=== PATIENT | male | born 1975 ===

== ENCOUNTER 2017-02-20 02:57 | Inpatient (IN) | payer MEDICARE, OTHER ==
[2017-02-20 03:14] VITALS: O2SAT 97
[2017-02-20 03:15] VITALS: BMI 34.0
--- NOTE | 2017-02-20 03:25 | ED PDOC ---
HPI: Psych/Substance Abuse Time Seen by Provider: 02/20/17 03:04 Chief Complaint (Nursing): Psychiatric Evaluation Chief Complaint (Provider): SI x 1 hour History Per: Patient History/Exam Limitations: no limitations Onset/Duration Of Symptoms: Hrs Current Symptoms Are (Timing): Still Present Modifying Factor(s): None Additional Complaint(s): Pt states he has history of bipolar disorder. PT states he takes Haldol but it has not been working. Pt states he thinks he had a suicide attempt in the past but does not remember. Past Medical History Reviewed: Historical Data, Nursing Documentation, Vital Signs Vital Signs: Last Vital Signs Temp 98.3 F 02/20/17 03:13 Pulse 90 02/20/17 03:13 Resp 18 02/20/17 03:13 BP 132/84 02/20/17 03:13 Pulse Ox 97 02/20/17 03:13 - Medical History PMH: Anxiety, Bipolar Disorder, Depression, Diabetes, Paranoia, Schizophrenia Denies: Alzheimer's Disease, Anemia, Arthritis, Asthma, Bronchitis, Cardia Arrhythmia, CHF, COPD, Crohn's Disease, Dementia, Diverticulitis, Emphysema, Fibromyalgia, Fractures, Gastrointestinal Ulcer, Gall Bladder Disease, Hepatitis , HIV, HTN, Hypercholesterolemia, Hyperthyroidism, Hypothyroidism, Kidney Stones , Migraine, Mitral Valve Prolapse, Osteoporosis, Pancreatitis, Parkinson's Disease, Peripheral Edema, Pneumonia, Post Traumatic Stress Disorder, Chronic Kidney Disease, Seizures, Sickle Cell Disease, Sexually Transmitted Disease, Sleep Apnea, TIA - Surgical History Surgical History: Appendectomy Denies: Cholecystectomy, Coronary Stent, Pacemaker - Family History Family History: States: Unknown Family Hx - Living Arrangements Living Arrangements: With Family - Social History Current smoker - smoking cessation education provided: No - Immunization History Hx Tetanus Toxoid Vaccination: No (feels immunizations make him sick) Hx Influenza Vaccination: No Hx Pneumococcal Vaccination: No - Home Medications Home Medications: Ambulatory Orders Medication Instructions Recorded Benztropine [Benztropine Mesylate] 1 mg PO BID PRN #30 tab 05/04/16 Haloperidol [Haldol] 5 mg PO BID #30 tab 05/04/16 MetFORMIN [glucoPHAGE] 1,000 mg PO BID #30 tab 05/04/16 Sertraline [Zoloft] 50 mg PO DAILY #15 tab 05/04/16 - Allergies Allergies/Adverse Reactions: Allergies Allergy/AdvReac Type Severity Reaction Status Date / Time divalproex sodium Allergy RASH Verified 02/10/16 23:00 [From Depakote] seafood Allergy RASH Uncoded 02/10/16 23:00 Review of Systems ROS Statement: Except As Marked, All Systems Reviewed And Found Negative Psych: Positive for: Suicidal ideation Physical Exam - Reviewed Nursing Documentation Reviewed: Yes Vital Signs Reviewed: Yes - Physical Exam Appears: Positive for: Well, Non-toxic, No Acute Distress Head Exam: Positive for: ATRAUMATIC, NORMAL INSPECTION, NORMOCEPHALIC Skin: Positive for: Normal Color, Warm, DRY Eye Exam: Positive for: Normal appearance ENT: Positive for: Normal ENT Inspection Neck: Positive for: Normal, Painless ROM Cardiovascular/Chest: Positive for: Regular Rate, Rhythm Respiratory: Positive for: CNT, Normal Breath Sounds Gastrointestinal/Abdominal: Positive for: Normal Exam, Bowel Sounds, Soft Back: Positive for: Normal Inspection Extremity: Positive for: Normal ROM Neurologic/Psych: Positive for: Alert, Oriented - ECG O2 Sat by Pulse Oximetry: 97 Disposition - Clinical Impression Clinical Impression: Depression - Patient ED Disposition Is Patient to be Admitted: Yes - Disposition Referrals: [facility] [Outside] Disposition Time: 04:09 Condition: GOOD - Pt Status Changed To: Hospital Disposition Of: Inpatient - Admit Certification Admit to Inpatient:: After my assessment, the patient will require hospitalization for at least two midnights. This is because of the severity of symptoms shown, intensity of services needed, and/or the medical risk in this patient being treated as an outpatient. - POA Present On Arrival: None
[2017-02-20 04:19] LABS: HEMATOCRIT 41.2 % (35.0-51.0); MEAN CELL VOLUME 86.5 fl (80.0-94.0); MEAN CORPUSCULAR HEMOGLOBIN 29.2 pg (27.0-31.0); MEAN CORPUSCULAR HGB CONC 33.8 g/dL (33.0-37.0); RED CELL DISTRIBUTION WIDTH 13.9 % (11.5-14.5); WHITE BLOOD COUNT 9.3 K/uL (4.8-10.8)
[2017-02-20 04:20] LABS: RBC URINE < 1 /hpf (0-3); URINE BILIRUBIN NEGATIVE (NEGATIVE); URINE BLOOD NEGATIVE (NEGATIVE); URINE COLOR STRAW (YELLOW); URINE GLUCOSE (UA) >=500 mg/dL (Normal); URINE KETONE NEGATIVE (NEGATIVE); URINE LEUKOCYTE ESTERASE NEG Leu/uL (Negative); URINE PROTEIN NEGATIVE (NEGATIVE); URINE UROBILINOGEN 0.2-1.0 mg/dL (0.2-1.0); WBC URINE < 1 /hpf (0-5)
[2017-02-20 04:24] LABS: CHLORIDE 101 mmol/L (98-107); POTASSIUM 3.8 MMOL/L (3.6-5.0); SODIUM 139 mmol/l (132-148)
[2017-02-20 04:26] LABS: BILIRUBIN,TOTAL 0.3 mg/dl (0.2-1.3); GFR AFRICAN-AMERICAN > 60
[2017-02-20 04:27] LABS: ALB/GLOB RATIO 1.4 (1.0-2.1); ALKALINE PHOSPHATASE 89 U/L (38-126); ALT/SGPT 28 U/L (21-72); AST/SGOT 23 U/L (17-59); BLOOD UREA NITROGEN 10 mg/dl (9-20); CALCIUM 9.2 mg/dL (8.4-10.2); CARBON DIOXIDE 24 mmol/L (22-30); GLUCOSE,RANDOM 216 mg/dL (75-110); TOTAL PROTEIN 7.1 G/DL (6.3-8.2)
[2017-02-20 04:28] LABS: ALCOHOL SERUM < 10 mg/dl (0-10)
[2017-02-20] MEDS ORDERED: Magnesium Hydroxide Susp 30 ml UD PO PRN (05:09)
[2017-02-20] MEDS ORDERED: Alum-Mag Hydrox-Simethicone Susp (30 mL) PO PRN (05:09)
[2017-02-20] MEDS ORDERED: DiphenhydrAMINE 50 mg/ml Inj IM PRN (05:09)
[2017-02-20 07:28] LABS: CHOLESTEROL 172 mg/dL (0-199)
[2017-02-20 10:39] VITALS: RESP 18
--- NOTE | 2017-02-20 10:48 | RAD ---
HISTORY: Admission. Technique: Single view portable erect @ 04:20. COMPARISON: 05/03/2016. FINDINGS: LUNGS: No active pulmonary disease. PLEURA: No significant pleural effusion identified, no pneumothorax apparent. CARDIOVASCULAR: Normal. OSSEOUS STRUCTURES: No significant abnormalities. VISUALIZED UPPER ABDOMEN: Normal. OTHER FINDINGS: None. IMPRESSION: No active disease. No significant interval change compared to the prior examination(s).
[2017-02-20 14:48] LABS: T4 9.02 ug/dl (5.5-11.0)
[2017-02-20 15:02] LABS: THYROID STIMULATING HORMONE 2.57 mIU/ML (0.46-4.68)
--- NOTE | 2017-02-20 16:12 | CARD ---
APPROVED REPORT EKG Measurement Heart [id number] <Conclusion> Normal sinus rhythm Nonspecific ST and T wave abnormality Abnormal ECG
--- NOTE | 2017-02-21 19:22 | CP.PCM.CON ---
History of Present Illness - History of Present Illness History of Present Illness: 41 yo male with history of Bipolar DO and DMII admitted to psyche unit because of worsening depression. Review of Systems - Review of Systems All systems: reviewed and no additional remarkable complaints except (aside from those mentioned above, 12 point system review were negative by me) Past Patient History - Infectious Disease Hx of Infectious Diseases: None - Tetanus Immunizations Tetanus Immunization: Unknown - Past Social History Smoking Status: Light Smoker < 10 Cigarettes Daily Alcohol: < 2 Drinks/Day Home Situation {Lives}: Homeless - CARDIAC Hx Cardiac Disorders: No Hx Cardia Arrhythmia: No Hx Congestive Heart Failure: No Hx Hypercholesterolemia: No Hx Hypertension: No Hx Mitral Valve Prolapse: No Hx Pacemaker: No Hx Peripheral Edema: No - PULMONARY Hx Respiratory Disorders: No Hx Asthma: No Hx Bronchitis: No Hx Chronic Obstructive Pulmonary Disease (COPD): No Hx Emphysema: No Hx Pneumonia: No Hx Sleep Apnea: No - NEUROLOGICAL Hx Neurological Disorder: No Hx Alzheimer's Disease: No Hx Dementia: No Hx Migraine: No Hx Parkinson's Disease: No Hx Seizures: No Hx Transient Ischemic Attacks (TIA): No - HEENT Hx HEENT Problems: No - RENAL Hx Chronic Kidney Disease: No - ENDOCRINE/METABOLIC Hx Endocrine Disorders: Yes (DM) - HEMATOLOGICAL/ONCOLOGICAL Hx Blood Disorders: No Hx Anemia: No Hx Human Immunodeficiency Virus (HIV): No Hx Sickle Cell Disease: No - INTEGUMENTARY Hx Dermatological Problems: No - MUSCULOSKELETAL/RHEUMATOLOGICAL Hx Musculoskeletal Disorders: No Hx Arthritis: No Hx Fractures: No Hx Osteoporosis: No - GASTROINTESTINAL Hx Gastrointestinal Disorders: No Hx Crohn's Disease: No Hx Diverticulitis: No Hx Gall Bladder Disease: No Hx Pancreatitis: No - GENITOURINARY/GYNECOLOGICAL Hx Genitourinary Disorders: No Hx Sexually Transmitted Disorders: No - PSYCHIATRIC Hx Psychophysiologic Disorder: No Hx Anxiety: No Hx Bipolar Disorder: No Hx Depression: Yes Hx Emotional Abuse: No Hx Physical Abuse: No Hx Schizophrenia: No Hx Sexual Abuse: No Hx Substance Use: No - SURGICAL HISTORY Hx Surgeries: Yes Hx Appendectomy: Yes Hx Cholecystectomy: No Hx Coronary Stent: No - ANESTHESIA Hx Anesthesia: Yes Meds Allergies/Adverse Reactions: Allergies Allergy/AdvReac Type Severity Reaction Status Date / Time divalproex sodium Allergy RASH Verified 02/10/16 23:00 [From Depakote] seafood Allergy RASH Uncoded 02/10/16 23:00 - Medications Medications: Current Medications Acetaminophen (Tylenol 325mg Tab) 650 mg PO Q4 PRN PRN Reason: pain 1-7 Al Hydrox/Mg Hydrox/Simethicone (Maalox Plus 30 Ml) 30 ml PO Q4 PRN PRN Reason: Dyspepsia Diphenhydramine HCl (Benadryl) 50 mg PO Q6 PRN PRN Reason: Extrapyramidal Symptoms Diphenhydramine HCl (Benadryl) 50 mg IM Q6 PRN PRN Reason: Extrapyramidal S/S Unable PO Haloperidol (Haldol) 5 mg PO Q4 PRN PRN Reason: Agitation Haloperidol Lactate (Haldol) 5 mg IM Q4 PRN PRN Reason: Agitation, Unable to Take PO Lorazepam (Ativan) 2 mg PO Q4 PRN PRN Reason: Anxiety/Agitation Lorazepam (Ativan) 2 mg IM Q4 PRN PRN Reason: Anxiety/Agitation,Unable PO Magnesium Hydroxide (Milk Of Magnesia) 30 ml PO HS PRN PRN Reason: Constipation Metformin HCl (Glucophage) 1,000 mg PO BIDWM [facility] Last Admin: 02/21/17 16:45 Dose: 1,000 mg Risperidone (Risperdal Tab) 1 mg PO DAILY [facility] Last Admin: 02/21/17 15:57 Dose: 1 mg Sertraline HCl (Zoloft) 50 mg PO DAILY [facility] Last Admin: 02/21/17 15:56 Dose: 50 mg Physical Exam - Constitutional Appears: No Acute Distress - Head Exam Head Exam: ATRAUMATIC - Eye Exam Eye Exam: PERRL - ENT Exam ENT Exam: Mucous Membranes Moist - Neck Exam Neck exam: Negative for: Meningismus - Respiratory Exam Respiratory Exam: absent: Rhonchi, Wheezes, Respiratory Distress - Cardiovascular Exam Cardiovascular Exam: REGULAR RHYTHM, +S1, +S2 - GI/Abdominal Exam GI & Abdominal Exam: Soft. absent: Tenderness - Rectal Exam Rectal Exam: Deferred - Extremities Exam Extremities exam: Negative for: pedal edema - Neurological Exam Neurological exam: Alert, Oriented x3 - Psychiatric Exam Psychiatric exam: Normal Affect - Skin Skin Exam: Dry, Intact Results - Vital Signs Recent Vital Signs: Last Vital Signs Temp 97.5 F L 02/21/17 16:07 Pulse 83 02/21/17 16:07 Resp 18 02/21/17 16:07 BP 133/81 02/21/17 16:07 Pulse Ox 97 02/20/17 04:09 - Labs Result Diagrams: 02/20/17 04:10 02/20/17 04:10 Assessment & Plan (1) Depression Status: Chronic Comment: psyche is managing (2) DM2 (diabetes mellitus, type 2) Status: Chronic Comment: BS uncontrolled. Metformin 1000mg PO BID. accuchek ACHS. HgA1C, bmp in am
--- NOTE | 2017-02-21 21:31 | PCM.PSYCH ---
Initial Psychiatric Evaluation - Initial Psychiatric Evaluation Chief Complaint (in patient's own words): came to hospital to have my medications adjusted Patient's Reaction to Hospitalization: voluntary although pt has submitted a 48 hour notice History of Present Illness and Precipitating Events: 41 year old [place]/Estonian speaking male self presented to ER requesting adjustment of medications-reportedly becoming increasingly depressed after the reportedly of a 27 yo nephew 2nd January 2017. Delmy was previously treated at [facility] for depression. Denies having any hallucinations in past/nor current, denies jelly vacillations in mood, reports that has been treated in past with haldol and it did not help and it made me feel like I was tired-was also treated with rispderdal without notable side effects and helped with depression. Presents to [facility] because it was here where he was first admitted several years ago. Delmy has has had 4 admissions for mental reasons all of which have been [facility] "feels comfortable here, [facility] has rule where they can keep you up to 3 days". 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 Has primary care provider in [place], has diabetes-treated with glucophage 1000mg po bid-reports has been adherent with medication-denies polyuria, polyphagia, polydypsia, denies having any wounds not healing. Current Medications: Active Medications Generic Name Dose Route Start Last Admin Trade Name Freq PRN Reason Stop Dose Admin Acetaminophen 650 mg 02/20/17 05:09 Tylenol 325mg Tab PO Q4 PRN pain 1-7 Al Hydrox/Mg Hydrox/Simethicone 30 ml 02/20/17 05:09 Maalox Plus 30 Ml PO Q4 PRN Dyspepsia Diphenhydramine HCl 50 mg 02/20/17 05:09 Benadryl PO Q6 PRN Extrapyramidal Symptoms Diphenhydramine HCl 50 mg 02/20/17 05:09 Benadryl IM Q6 PRN Extrapyramidal S/S Unable PO Haloperidol 5 mg 02/20/17 05:09 Haldol PO Q4 PRN Agitation Haloperidol Lactate 5 mg 02/20/17 05:09 Haldol IM Q4 PRN Agitation, Unable to Take PO Lorazepam 2 mg 02/20/17 05:09 Ativan PO Q4 PRN Anxiety/Agitation Lorazepam 2 mg 02/20/17 05:09 Ativan IM Q4 PRN Anxiety/Agitation,Unable PO Magnesium Hydroxide 30 ml 02/20/17 05:09 Milk Of Magnesia PO HS PRN Constipation Metformin HCl 1,000 mg 02/20/17 17:00 02/21/17 16:45 Glucophage PO 1,000 mg BIDWM [facility] Administration Risperidone 1 mg 02/21/17 13:30 02/21/17 15:57 Risperdal Tab PO 1 mg DAILY [facility] Administration Sertraline HCl 50 mg 02/21/17 13:30 02/21/17 15:56 Zoloft PO 50 mg DAILY [facility] Administration Past Psychiatric History - Past Psychiatric History Previous Treatment History: Inpatient Prior Psychiatric Treatment: both inpt and opd including [facility] Explanation of prior treatment: s/s depression History of Abuse: denies History of ETOH/Drug Use: smokes approx. 4 cigarrettes per day denies use of other non prescribed rx History of Family Illness: defers Pertinent Medical Hx (Current Medical&Sleep Prob, Allergies): Allergies Allergy/AdvReac Type Severity Reaction Status Date / Time divalproex sodium Allergy RASH Verified 02/10/16 23:00 [From Depakote] seafood Allergy RASH Uncoded 02/10/16 23:00 Benztropine [Benztropine Mesylate] 1 mg PO BID PRN #30 tab 05/04/16 Haloperidol [Haldol] 5 mg PO BID #30 tab 05/04/16 MetFORMIN [glucoPHAGE] 1,000 mg PO BID #30 tab 05/04/16 Sertraline [Zoloft] 50 mg PO DAILY #15 tab 05/04/16 Review of Systems - Psychiatric Psychiatric: Anhedonia, Depression Mental Status Examination - Personal Presentation Personal Presentation: Looks stated age - Affect Affect: Broad - Motor Activity Motor Activity: Calm - Reliability in Providing Information Reliability in Providing Information: Fair - Speech Speech: Organized - Mood Mood: Depressed - Formal Thought Process Formal Thought Process: No Impairment - Obsessions/Compulsions Obsessions: No Compulsions: No - Cognitive Functions Orientation: Person, Place, Situation, Time Sensorium: Alert Attention/Concentration: Attentive Judgement: Imparied, as evidence by: Other Memory: Recent intact, as evidence by: Other - Risk Additional comments: failed transitioning DSM 5 DX - DSM 5 DSM 5 Diagnosis: Major Depressive Disorder mild to moderate without psychosis Hx. Bipolar Disorder Substance use: nicotine active - Recommended/Plan of Treatment Treatment Recommendations and Plan of Treatment: inpt admission per attending md vital signs and clinical observation per protocol and per clinical status Restart risperdal 2mg po hs Restart zoloft 25mg po daily pt defers nicotine patch hospitalist consult pt has submitted 48 hour notice-48 hour notice reviewed including meaning/ significance-positive verbal teach back method noted discharge planning in progress-requests to follow up [facility] Projected ELOS: 2-4 days Prognosis: guarded Discharge Plan and Discharge Criteria: safety - Smoking Cessation Smoking Cessation Initiated: No Reason for not providing: pt deferred
[2017-02-22 09:10] VITALS: BP 134/81; PULSE 72; TEMP 97.2
--- NOTE | 2017-02-22 09:55 | PCM.PYCHDC ---
Mental Status Examination - Mental Status Examination Orientation: Person, Place, Situation, Time Memory: Intact Mood: Neutral Affect: Broad Speech: Appropriate Attention: WNL Concentration: WNL Association: WNL Fund of Knowledge: WNL Formal Thought Process: No Impairment Description of patient's judgement and insight: Denies AH/VH/paranoia Suicidal Ideation: No Current Homicidal Ideation?: No Discharge Summary - Discharge Note Reason for Hospitalization: 41 year old Kiswahili/Palestinian speaking male self presented to ER requesting adjustment of medications-reportedly becoming increasingly depressed after the reportedly of a 27 yo nephew 2nd asthma January 2017. Delmy was previously treated at [facility] for depression. Denies having any hallucinations in past/nor current, denies jelly vacillations in mood, reports that has been treated in past with haldol and it did not help and it made me feel like I was tired-was also treated with rispderdal without notable side effects and helped with depression. Presents to [facility] because it was here where he was first admitted several years ago. Delmy has has had 4 admissions for mental reasons all of which have been [facility] "feels comfortable here, [facility] has rule where they can keep you up to 3 days". 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 Has primary care provider in [place], has diabetes-treated with glucophage 1000mg po bid-reports has been adherent with medication-denies polyuria, polyphagia, polydypsia, denies having any wounds not healing. Consultations:: List each consultation separately and include: 1. Reason for request. 2. Findings. 3. Follow-up Consultations: Medicine consult Summary of Hospital Course include:: 1. Description of specific treatment plan utilized for patients during their course of treatmen. 2. Summarize the time- course for resolution of acute symptoms and/or regressed behaviors. 3. Describe issues identified and worked on during hospitalization. 4. Describe medication utilized. 5. Describe medical problems identified and treated. 6. Reassessment of suicide risk Summary of Hospital Course: Patient admitted to the hospital. He was restabilized on Zoloft 50 mg PO Daily and Riperdal 2 mg PO Daily. He reports that his mood has improved and denies psychotic symptoms. He submitted a 48 hr letter requesting discharge and as he is not an acute danger to himself or others, will discharge him to home. He does not meet criteria for involuntary commitment. - Final Diagnosis (DSM 5) Condition upon Discharge: GOOD DSM 5: Major Depressive Disorder Disposition: HOME/ ROUTINE Follow-up Treatment Plan: -Continued f/u with his outpatient psychiatrist Prescriptions/Medication Reconciliation: risperiDONE [RisperDAL Tab] 2 mg PO HS #30 tab Sertraline [Zoloft] 50 mg PO DAILY #30 tab MetFORMIN [glucoPHAGE] 1,000 mg PO BIDWM #60 tab - Smoking Cessation Smoking Cessation Medication prescribed: No Reason for not providing: Not indicated - Antipsychotic Medications Pt discharged on 2 or more routine antipsychotic medications: No
== END 2017-02-22 13:44 | disposition home or self-care (01) | DRG 885 ==
LOC: H.ER 02:57 → H.ERHOLD 03:56 → H.PSYCH 05:02
PROVIDERS: ADMIT Psychiatry & Neurology Psychiatry; ATTEND Psychiatry & Neurology Psychiatry
PROC: GZ51ZZZ Individual Psychotherapy, Behavioral (ICD-10-PCS; 2017-02-20)
PROC: GZHZZZZ Group Psychotherapy (ICD-10-PCS; principal; 2017-02-22)
DX: F32.1 Major depressive disorder, single episode, moderate (principal); E11.65 Type 2 diabetes mellitus with hyperglycemia; F31.9 Bipolar disorder, unspecified; F22 Delusional disorders; Z87.891 Personal history of nicotine dependence; Z79.84 Long term (current) use of oral hypoglycemic drugs

== ENCOUNTER 2017-12-18 20:34 | Emergency (ER) | payer OTHER, MEDICAID ==
[2017-12-18 20:34] VITALS: BMI 34.0
[2017-12-18 21:18] VITALS: BP 110/73; PULSE 92; RESP 16; TEMP 98.4; O2SAT 97
--- NOTE | 2017-12-18 21:41 | ED PDOC ---
HPI: Psych/Substance Abuse Time Seen by Provider: 12/18/17 21:32 Chief Complaint (Nursing): Psychiatric Evaluation Chief Complaint (Provider): crisis eval History Per: Patient History/Exam Limitations: no limitations Onset/Duration Of Symptoms: Hrs (1) Current Symptoms Are (Timing): Still Present Additional History Per: Patient Additional Complaint(s): 42 y/o male presents for crisis eval. Patient states he has been having suicidal ideations x 1 hour, with no specific plan. Denies homicidal ideations , hallucinations, drug/alcohol use, acute physical complaints. Of note, Patient recently admitted to [facility] psychiatric unit and discharged 2 days ago Past Medical History Reviewed: Historical Data, Nursing Documentation, Vital Signs Vital Signs: Last Vital Signs Temp 98.4 F 12/18/17 21:16 Pulse 92 H 12/18/17 21:16 Resp 16 12/18/17 21:16 BP 110/73 12/18/17 21:16 Pulse Ox 97 12/18/17 21:16 - Medical History PMH: Anxiety, Bipolar Disorder, Depression, Diabetes, Paranoia, Schizophrenia Denies: Alzheimer's Disease, Anemia, Arthritis, Asthma, Bronchitis, Cardia Arrhythmia, CHF, COPD, Crohn's Disease, Dementia, Diverticulitis, Emphysema, Fractures, Gall Bladder Disease, Hepatitis, HIV, HTN, Hypercholesterolemia, Migraine, Mitral Valve Prolapse, Osteoporosis, Pancreatitis, Parkinson's Disease , Peripheral Edema, Pneumonia, Chronic Kidney Disease, Seizures, Sickle Cell Disease, Sexually Transmitted Disease, Sleep Apnea, TIA - Surgical History Surgical History: Appendectomy Denies: Cholecystectomy, Coronary Stent, Pacemaker - Family History Family History: States: No Known Family Hx - Immunization History Hx Tetanus Toxoid Vaccination: No (feels immunizations make him sick) Hx Influenza Vaccination: No Hx Pneumococcal Vaccination: No - Home Medications Home Medications: Ambulatory Orders Medication Instructions Recorded MetFORMIN [glucoPHAGE] 1,000 mg PO BIDWM #60 tab 02/22/17 Sertraline [Zoloft] 50 mg PO DAILY #30 tab 02/22/17 risperiDONE [RisperDAL Tab] 2 mg PO HS #30 tab 02/22/17 - Allergies Allergies/Adverse Reactions: Allergies Allergy/AdvReac Type Severity Reaction Status Date / Time divalproex sodium Allergy RASH Verified 02/10/16 23:00 [From Depakote] seafood Allergy RASH Uncoded 02/10/16 23:00 Review of Systems ROS Statement: Except As Marked, All Systems Reviewed And Found Negative Psych: Positive for: Depression, Suicidal ideation Physical Exam - Reviewed Nursing Documentation Reviewed: Yes Vital Signs Reviewed: Yes - Physical Exam Appears: Positive for: Well, Non-toxic, No Acute Distress Head Exam: Positive for: ATRAUMATIC, NORMAL INSPECTION, NORMOCEPHALIC Skin: Positive for: Normal Color Eye Exam: Positive for: Normal appearance ENT: Positive for: Normal ENT Inspection Cardiovascular/Chest: Positive for: Regular Rate, Rhythm Respiratory: Positive for: Normal Breath Sounds Gastrointestinal/Abdominal: Positive for: Normal Exam Extremity: Positive for: Normal ROM Neurologic/Psych: Positive for: Alert, Oriented - ECG O2 Sat by Pulse Oximetry: 97 - Progress ED Course And Treament: Patient evaluated by body and fender worker; does not meet criteria for admission at this time. Patient stable for discharge Return precautions given. Disposition - Clinical Impression Clinical Impression: Schizoaffective disorder Counseled Patient/Family Regarding: Diagnosis, Need For Followup - Disposition Disposition: Routine/Home Disposition Time: 00:32 Condition: STABLE Instructions: Schizoaffective Disorder (ED)
== END 2017-12-19 00:44 | disposition home or self-care (01) ==
LOC: H.ER 20:34
DX: F25.9 Schizoaffective disorder, unspecified (principal); E11.9 Type 2 diabetes mellitus without complications; Z79.84 Long term (current) use of oral hypoglycemic drugs; F31.9 Bipolar disorder, unspecified; F41.9 Anxiety disorder, unspecified

== ENCOUNTER 2018-02-10 10:36 | Emergency (ER) | payer MEDICAID, MEDICARE, OTHER ==
[2018-02-10 10:46] VITALS: RESP 16; TEMP 98.8; O2SAT 98; BMI 33.7
--- NOTE | 2018-02-10 11:15 | ED PDOC ---
HPI: Psych/Substance Abuse Time Seen by Provider: 02/10/18 11:14 Chief Complaint (Nursing): Psychiatric Evaluation Chief Complaint (Provider): suicidal ideation History Per: Patient (42 y/o male here with SI today. Denies any specific plan. Denies any etoh/drugs today. STates he has been admitted for depression in past.) Past Medical History Reviewed: Historical Data, Nursing Documentation, Vital Signs Vital Signs: Last Vital Signs Temp 98.8 F 02/10/18 10:42 Pulse 103 H 02/10/18 10:42 Resp 16 02/10/18 10:42 BP 99/62 L 02/10/18 10:42 Pulse Ox 98 02/10/18 10:42 - Medical History PMH: Anxiety, Bipolar Disorder, Depression, Paranoia, Schizophrenia Denies: Alzheimer's Disease, Anemia, Arthritis, Asthma, Bronchitis, Cardia Arrhythmia, CHF, COPD, Crohn's Disease, Dementia, Diabetes, Diverticulitis, Emphysema, Fractures, Gall Bladder Disease, Hepatitis, HIV, HTN, Hypercholesterolemia, Migraine, Mitral Valve Prolapse, Osteoporosis, Pancreatitis, Parkinson's Disease, Peripheral Edema, Pneumonia, Chronic Kidney Disease, Seizures, Sickle Cell Disease, Sexually Transmitted Disease, Sleep Apnea, TIA Other PMH: on haldol - Surgical History Surgical History: Appendectomy Denies: Cholecystectomy, Coronary Stent, Pacemaker - Family History Family History: States: No Known Family Hx - Immunization History Hx Tetanus Toxoid Vaccination: No (feels immunizations make him sick) Hx Influenza Vaccination: No Hx Pneumococcal Vaccination: No - Home Medications Home Medications: Ambulatory Orders Medication Instructions Recorded Benztropine [Benztropine Mesylate] 2 mg PO AMHS #30 tab 12/26/17 FLUoxetine [Prozac] 20 mg PO DAILY #14 cap 12/26/17 Haloperidol [Haldol] 10 mg PO AMHS #30 tab 12/26/17 MetFORMIN [glucoPHAGE] 1,000 mg PO BID #14 tab 12/26/17 - Allergies Allergies/Adverse Reactions: Allergies Allergy/AdvReac Type Severity Reaction Status Date / Time divalproex sodium Allergy RASH Verified 02/10/18 11:02 [From Depakote] seafood Allergy RASH Uncoded 12/22/17 14:27 Review of Systems ROS Statement: Except As Marked, All Systems Reviewed And Found Negative Physical Exam - Reviewed Nursing Documentation Reviewed: Yes Vital Signs Reviewed: Yes - Physical Exam Appears: Positive for: Well, Non-toxic, No Acute Distress Head Exam: Positive for: ATRAUMATIC, NORMAL INSPECTION, NORMOCEPHALIC Skin: Positive for: Normal Color, Warm, DRY Eye Exam: Positive for: EOMI, Normal appearance, PERRL ENT: Positive for: Normal ENT Inspection Neck: Positive for: Normal, Painless ROM Cardiovascular/Chest: Positive for: Regular Rate, Rhythm Respiratory: Positive for: CNT, Normal Breath Sounds Gastrointestinal/Abdominal: Positive for: Normal Exam, Soft Back: Positive for: Normal Inspection Extremity: Positive for: Normal ROM Neurologic/Psych: Positive for: Alert, Oriented - ECG O2 Sat by Pulse Oximetry: 98 - Progress ED Course And Treament: SEEN BY CRISIS TEAM. PATIENT DISCLOSES TO THEM HE IS HOMELESS AND OUT OF MEDICATIONS SINCE LAST ADMISSION. D/W DR. ELAM D/C HOME DIAGNOSIS SCHIZOAFFECTIVE DISORDER HALDOL 10 MG X 1 DOSE COGENTIN 2 MG X 1 DOSE IN ED PATIENT GIVEN F/U APPT 02/15 11:20AM THIS WEEK Disposition - Clinical Impression Clinical Impression: Schizoaffective disorder - Patient ED Disposition Is Patient to be Admitted: No - Disposition Disposition: Routine/Home Disposition Time: 12:19 Condition: FAIR Additional Instructions: FOLLOW UP February AT 11:20 AM WITH SOHA SALINAS YOUR FOLLOW UP APPOINTMENT Instructions: Schizoaffective Disorder Forms: [facility] (Panamanian)
[2018-02-10 13:49] VITALS: BP 100/70; PULSE 89
== END 2018-02-10 13:12 | disposition home or self-care (01) ==
LOC: H.ER 10:36
DX: F25.9 Schizoaffective disorder, unspecified (principal); F31.9 Bipolar disorder, unspecified; F41.9 Anxiety disorder, unspecified; Z79.84 Long term (current) use of oral hypoglycemic drugs